=== PATIENT | male | born 1995 | race Caucasian/White ===

== ENCOUNTER 2022-11-22 05:09 | Day surgery (SDC) | payer SELFPAY ==
[2022-11-22 06:25] VITALS: BP 148/105; PULSE 88; RESP 18; TEMP 37.1; O2SAT 99; BMI 29.5
[2022-11-22] MEDS: Lactated Ringers 1,000 ML 15 ML IV (06:39)
--- NOTE | 2022-11-22 07:00 | PCM.HP.BLA ---
History and Physical Date of Admission: 11/22/22 Intake Vital Signs 10/26/2312:44 Weight: 172 lb BP 146/98 H Blood Pressure Location Rt brachial Position Sitting Respiration 17 Pulse 89 Pulse Source Monitor Temp 96.6 F L Temp Source Temporal Pulse Oximetry (%) 97 Oxygen Delivery Method room air Intake Visit Reasons: L INGUINAL HERNIA Chief Complaint: left inguinal hernia Is patient in pain?: No Allergies No Known Allergies Allergy (Unverified 10/26/22 13:46) Medications NK 10/26/22 [History Confirmed 10/26/22] PFSH Family History (Updated 10/26/22 @ 13:44 by Pooja Lewis) Grandfather DiabetesGrandmother Colon cancer Social History (Updated 10/26/22 @ 13:44 by Pooja Lewis) Smoking Status: Never smoker alcohol intake: current alcohol intake frequency: a few times a month HPI HPI HPI: Patient is a 27-year-old male with left inguinal hernia. Patient says has been there for around a year and is growing larger and more uncomfortable. He denies nausea or vomiting. ROS General General: No weight change, appetite, fatigue, colon cancer, breast cancer or weakness HEENT HEENT: No difficulty swallowing, eye injury, eye surgery, swollen glands or hoarseness Endo Endocrine: No thyroid disease, diabetes mellitus, thyroid cancer, Hair loss, heat intolerance or cold intolerance Skin Skin: No rash or changing moles Musc Musculoskeletal: Yes back problems; No arthritis, rheumatoid arthritis, gout or joint pain Cardio Cardiovascular: No murmur, pacemaker, heart disease, atrial fibrillation, high blood pressure, heart attack, heart stent, palpitations, shortness of breat with exertion or chest pain Psych Psychiatric: No depression, anxiety or hearing voices Resp Respiratory: No shortness of breath, No sleep apnea, No cough, No COPD, No asthma, No emphysema and No wheezing Gastro Gastrointestinal: No abdominal pain, No nausea or vomiting, No diarrhea, No constipation, No blood in stool, No acid reflux, No hemorrhoids, No ulcers, No gallbladder problem and No black,tarry stools [place] Hematologic: No blood thinners, No blood disorders, No bleeding, No anemia and No blood clots Neuro Neurologic: No system reviewed and no additional complaints, except as documented, No as per HPI, No abnormal gait, No abnormal hearing, No abnormal movements, No abnormal speech, No behavioral changes, No burning sensations, No confusion, No convulsions, No disequilibrium, No dizziness, No localized weakness, No frequent falls, No headache(s), No lack of coordination, No loss of vision, No memory loss, No numbness, No other visual disturbances, No radicular pain, No restless legs, No sensory deficit, No syncope, No tingling, No tremor(s), No weakness and No other Exam Const General: cooperative Orientation: alert and oriented x3 [facility] Head: normal to inspection Neck Neck: normal visual inspection and full ROM Chest Chest palpation & inspection: normal inspection of the chest Resp Effort & Inspection: normal respiratory effort Auscultation: clear to auscultation bilaterally Cardio Rate: regular rate Rhythm: regular rhythm GI Inspection: non-distended Palpation: soft, hernia indirect inguinal on the left and nontender Skin General: no rashes or lesions noted Neuro General: patient alert and patient oriented x3 Extrem General: full ROM Psych Appearance: grossly normal Mental Status: mental status grossly normal Assessment and Plan Assessment and Plan (1) Left inguinal hernia: Status: Acute Plan: Patient has a left inguinal hernia which is very large. I discussed robotic assisted laparoscopic inguinal hernia repair with mesh. I discussed the risks including but not limited to bleeding, infection, injury of the wrist as the bowel, bladder, ureter or blood supply to the testicle. Patient or stands the risks and is willing to proceed. I also discussed the possibility of having to convert to open. I also discussed repairing the contralateral side if there is the beginning of a hernia on that side. Rico Alegre MD Pager: [facility] [address] [place] [address], [address] [place] [address] Office: I have examined the patient and the H&P has been reviewed. There are no clinical changes since date of exam.
[2022-11-22] MEDS: Cefazolin 2 GM in 0.9% Normal Saline (100mL Bag) 100 ML IV (07:29)
[2022-11-22] MEDS: Bupivacaine Mpf 0.5% 30 ML VIAL (09:20)
[2022-11-22 09:34] VITALS: BP 143/101; BP 148/105; PULSE 68; RESP 16; TEMP 36.4; O2SAT 92
--- NOTE | 2022-11-22 09:40 | OP.PCM_ITS ---
Report of Operation Date of Procedure: 11/22/22 Pre-Operative Diagnosis: Left inguinal hernia Post-Operative Diagnosis: Left inguinal hernia Surgery/Procedure Performed:: Robotic assisted laparoscopic left inguinal hernia repair with mesh Type of Anesthesia: General/Regional Estimated Blood Loss (mL): 20 Description of Procedure: Patient was brought back the operating room and general anesthesia was induced. The abdomen was prepped and draped in usual sterile fashion and the hernia was reduced. A small incision was made superior to the umbilicus and deepened to the fascia. The fascia was elevated and a Veress needle was placed into the abdomen. The abdomen was insufflated 15 mmHg after drop test was performed. The needle was then removed and a port was placed into the abdomen. Camera was placed into the abdomen there were no injuries from entry. The patient was placed in Trendelenburg position and appeared to have a left inguinal hernia containing colon. Under direct visualization an 8 mm port was placed on the right lateral and left lateral abdominal sidewalls. The robot was then docked. The colon was unable to be reduced fully as there were adhesions to the hernia sac. A small incision in the peritoneum was made using electrocautery scissors. The dissection was deepened down to the hernia sac and it was densely adherent. I was unable to follow the hernia sac all the way to its and as it reached all the way into the scrotum. At this point the sac was abandoned and divided. During posterior dissection of the hernia sac small vessel was injured in the co rd. A small clip was placed on it. There was good hemostasis. The area was inspected and then a ProGrip mesh was placed over the hernia. There was good overlap circumferentially. The peritoneum was reapproximated using a running 3 oh V-Loc suture. The opening in the hernia sac was also reapproximated using a running 3 OV lock suture. The mesh was completely covered at the end of the case with peritoneum. Next the robot was undocked and the ports were removed and the abdomen was allowed to desufflate. The scrotum was checked and contain both testicles. Next all the skin incisions were injected with local anesthetic and closed with interrupted 4-0 Monocryl suture. Steri-Strips and bandages were applied. Patient was awoken and taken to PACU in stable condition. Grafts/Implants Used: ProGrip mesh in the left groin Admit VTE Documentation VTE Mechan Device Prophylaxis: SCD's
[2022-11-22 09:45] VITALS: BP 136/96; BP 148/105; PULSE 68; RESP 16; O2SAT 92
--- NOTE | 2022-11-22 09:45 | DCINST_ITS ---
Discharge Instructions Procedure Hernia Diet Discharge Diet: Light diet - advance as tolerated Activity Discharge Activity: May Not Drive (for 2-3 days or while taking narcotic pain meds.) and May Shower (with the bandage in place 1-2 days after surgery.) Lifting Restrictions: 20 pounds for 4 weeks. Additional Activity Instructions:: Climbing stairs is fine, walking is encouraged. Sitting in bed may be uncomfortable. Sitting up using your lateral muscles (sitting up sideways) is usually more comfortable. Do not drive, work heavy equipment of sign legal documents for 24 hours. If your hernia repair was an ingunial repair, you may have scrotal swelling, an ice pack and/or athletic support can provide more comfort. Pain medications may cause nausea, you should typically eat light foods as you take your pain medications. Pain medications may also cause constipation. If you have difficulty with this, discuss with your doctor. Dressing / Incision Call your doctor if your incision/area has: Continuous Slow Oozing, Sudden Increased Bleeding, Increased Pain/ Swelling, Increased Redness and Foul Smelling Discharge Call your doctor if you observe: Fever of 101 or Higher Suture Line Care: Avoid Pulling/Pushing and Avoid Pinching/Bending Remove Dressing in: 2 days (Remove clear bandages in 2 days, remove Steri-Strips in 7 to 10 days.) Follow Up Care Please Follow Up With: Rico Alegre MD When: Please call to schedule 1 week follow up appointment. [phone] Test Results: Test results from this visit will be discussed in further detail at your follow- up appointment, if applicable. Discharge Plan Admission Attending Provider: Rico Alegre Primary Care Provider: Charan Madrid Instructions Additional Instructions / Restrictions: Ibuprofen and Tylenol alternating for pain, oxycodone for breakthrough. Discharge Orders/Prescriptions Prescriptions: New oxycodone 5 mg Tablet 5 - 10 mg PO Q4H PRN PRN (Reason: Pain Score 4-10/10) 5 Days Qty: 20 0RF Referrals / Follow Up: Charan Madrid DO [Primary Care Provider] - Disposition Disposition (needs filled in before D/C Order can be placed): Home, Self Care
[2022-11-22 10:00] VITALS: BP 134/96; BP 148/105; PULSE 77; RESP 16; O2SAT 96
[2022-11-22 10:09] VITALS: BP 143/99; BP 148/105; PULSE 70; RESP 16; TEMP 36.4; O2SAT 96
[2022-11-22 11:40] VITALS: BP 133/107; BP 148/105; PULSE 78; RESP 16; TEMP 36.7; O2SAT 95
== END 2022-11-22 11:56 | disposition home or self-care (01) ==
LOC: SDC 05:10 → AC 05:13
PROVIDERS: PCP Family Medicine; Referring Provider Surgery; Visit Provider Surgery
PROC: 0YQ64ZZ Repair Left Inguinal Region, Percutaneous Endoscopic Approach (ICD-10-PCS; CPT 49650; principal; 2022-11-22 07:10)
DX: K40.90 Unilateral inguinal hernia, without obstruction or gangrene, not specified as recurrent (principal)
CPT/HCPCS: 49650; S2900; 00750; J7120; J2405